=== PATIENT | male | born 1970 | race Caucasian/White ===

== ENCOUNTER → 2019-11-02 | Emergency (ER) | payer OTHER ==
[~2019-11-02] VITALS: Ht 175.3 cm; Wt 90.7 kg
[~2019-11-02] MED LIST: AMBIEN5 MG PO; MOTRIN IB200 MG PO; NORCO 5-325 TA1 EACH PO; PERCOCET 7.5-31 EACH PO; SILVADENE20 GM TOP; TYLENOL EXTRA500 MG PO
--- OUTSIDE RECORDS SUMMARY | ~2019-11-02 | XMS | Encounter Summary ---
Demographics + + + | Address | [address] | | | [place] [address] | + + + | Home Phone | | + + + | Preferred Language | Unknown | + + + | Marital Status | | + + + | Islam Affiliation | Unknown | + + + | Race | White | + + + | Ethnic Group | Not or | + + + Author + + + | Author | [facility] | + + + | Organization | [facility] | + + + | Address | Unknown | + + + | Phone | Unavailable | + + + Support + + + + + | Name | Relationship | Address | Phone | + + + + + | Bailey Watters | ECON | [address] | | | | | [place] | | | | | [address] | | + + + + + Care Team Providers + +------+ + | Care Polymer Tester Name | Role | Phone | + +------+ + PCP | Unavailable | + +------+ + Reason for Visit + + + | Reason | Comments | + + + | Blood draw | | + + + Encounter Details +--------+ + + + + | Date | Type | Department | Care Team | Description | +--------+ + + + + | 04/19/ | Clinical Recruiter | University | Mehreen Luis, | Special Screening | | 2006 | | Fertility | MD | Examination for | | | | Consultants at [facility] | | Other Specified | | | | [address] | | Viral Diseases; | | | | Mailcode: CH10F | | Screening | | | | [facility] | | Examination for | | | | and Healing, | | Venereal Disease | | | | Building | | | | | | Floor [place], [place] | | | | | | [address] | | | | | | [phone] | | | +--------+ + + + + Social History + +-------+ +--------+------+ | Tobacco Use | Types | Packs/Day | Years | Date | | | | | Used | | + +-------+ +--------+------+ | Never Assessed | | | | | + +-------+ +--------+------+ + + + | Sex Assigned at | Date Recorded | | | | + + + | Not on file | | + + + + + + + | Job Start Date | Occupation | Industry | + + + + | Not on file | Not on file | Not on file | + + + + + + + + | Travel History | Travel Start | Travel End | + + + + + + | No recent travel history available. | + + documented as of this encounter Plan of Treatment Not on filedocumented as of this encounter Results RPR SERUM (04/25/2007 7:57 AM PST) + + + + + + | Component | Value | Ref Range | Performed | Pathologist | | | | | At | Signature | + + + + + + | RPR SRM | Non-ReactiveComment: | | | | | QUAL | Test performed by | | | | | | [facility] | | | | | | [facility]. | | | | + + + + + + + + | Specimen | + + | Blood - Blood | + + + + + + + | Performing | Address | City/State/Zipcode | Phone Number | | Organization | | | | + + + + + | [facility] | [address] | [place] [address] | | | LABORATORY | | | | + + + + + HEPATITIS C AB (04/25/2007 7:56 AM PST) + + + + + + | Component | Value | Ref Range | Performed | Pathologist | | | | | At | Signature | + + + + + + | HEPATITIS C | NegativeComment: | Negative | | | | AB | Test performed by [facility] | | | | | | [facility] | | | | | | Laboratories. | | | | + + + + + + + + | Specimen | + + | Blood - Blood | + + + + + + + | Performing | Address | City/State/Zipcode | Phone Number | | Organization | | | | + + + + + | [facility] | [address] | [place] [address] | | | LABORATORY | | | | + + + + + HEPATITIS B SURFACE AG (04/25/2007 7:56 AM PST) + + + + + + | Component | Value | Ref Range | Performed | Pathologist | | | | | At | Signature | + + + + + + | HEPATITIS B | NegativeComment: | Negative | | | | SURFACE | Test performed by [facility] | | | | | AG, SERUM | [facility] | | | | | | Laboratories. | | | | + + + + + + + + | Specimen | + + | Blood - Blood | + + + + + + + | Performing | Address | City/State/Zipcode | Phone Number | | Organization | | | | + + + + + | [facility] | [address] | [place] [address] | | | LABORATORY | | | | + + + + + documented in this encounter Visit Diagnoses + + | Diagnosis | + + | Special screening examination for other specified viral diseases | + + | Screening examination for venereal disease | + + documented in this encounter"
--- OUTSIDE RECORDS SUMMARY | ~2019-11-02 | XMS | Encounter Summary ---
Demographics + + + | Address | [address] | | | [place] [address] | + + + | Home Phone | | + + + | Preferred Language | Unknown | + + + | Marital Status | | + + + | Latter Day Affiliation | Unknown | + + + | Race | White | + + + | Ethnic Group | Not or | + + + Author + + + | Author | [facility] | + + + | Organization | [facility] | + + + | Address | Unknown | + + + | Phone | Unavailable | + + + Support + + + + + | Name | Relationship | Address | Phone | + + + + + | Bailey Watters | ECON | [address] | | | | | [place] | | | | | [address] | | + + + + + Care Team Providers + +------+ + | Care Nut Dehydrator Operator Name | Role | Phone | + +------+ + PCP | Unavailable | + +------+ + Encounter Details +--------+ + + + + | Date | Type | Department | Care Team | Description | +--------+ + + + + | 03/20/ | Ancillary | Registration [id number] | | | | 2006 | Registratio | [address] | | | | | [address] | [address] Mailcode: [id number] | | | | | | [place], [place] | | | | | | [address] | | | | | | [phone] | | | +--------+ + + + [...] Not on filedocumented as of this encounter Visit Diagnoses Not on filedocumented in this encounter"
--- OUTSIDE RECORDS SUMMARY | ~2019-11-02 | XMS | Encounter Summary ---
Demographics + + + | Address | [address] | | | [place] [address] | + + + | Home Phone | | + + + | Preferred Language | Unknown | + + + | Marital Status | | + + + | Mormonism Affiliation | Unknown | + + + | Race | White | + + + | Ethnic Group | Not or | + + + Author + + + | Author | [facility] | + + + | Organization | [facility] | + + + | Address | Unknown | + + + | Phone | Unavailable | + + + Support + + + + + | Name | Relationship | Address | Phone | + + + + + | Bailey Watters | ECON | [address] | | | | | [place] | | | | | [address] | | + + + + + Care Team Providers + +------+ + | Care Emt Dispatcher Name | Role | Phone | + [...] + + + + | 04/19/ | Special Education Associate | University | Mehreen Luis, | Special Screening | | 2006 | | Fertility | MD | Examination for | | | | Consultants at [facility] | | Other Specified | | | | [address] | | Viral Diseases; | | | | Mailcode: CH10F | | Screening | | | | [facility] | | Examination for | | | | and Healing, | | Venereal Disease | | | | Building | | | | | | Floor [place], [place] | | | | | | [address] | | | | | | [phone] | | | +--------+ + + + [...] by | | | | | | [facility] | | | | | | [facility]. | | | | + + + + + + + + | Specimen | + + | Blood - Blood | + + + + + + + | Performing | Address | City/State/Zipcode | Phone Number | | Organization | | | | + + + + + | [facility] | [address] | [place] [address] | | | LABORATORY | | | [...] | | AB | Test performed by [facility] | | | | | | [facility] [...] + + + + + | [facility] | [address] | [place] [address] | | | LABORATORY | | | [...] | | | | AG, SERUM | [facility] | | | | | | Laboratories. | | | | + + + + + + + + | Specimen | + + | Blood - Blood | + + + + + + + | Performing | Address | City/State/Zipcode | Phone Number | | Organization | | | | + + + + + | [facility] | [address] | [place] [address] | | | LABORATORY | | | | + + + + + documented in this encounter Visit Diagnoses + + | Diagnosis | + + | Special screening examination for other specified viral diseases | + + | Screening examination for venereal disease | + + documented in this encounter"
--- OUTSIDE RECORDS SUMMARY | ~2019-11-02 | XMS | Clinical Summary ---
Demographics + + + | Address | [address] | | | [place] [address] | + + + | Home Phone | | + + + | Preferred Language | Unknown | + + + | Marital Status | | + + + | Mu-Ism Affiliation | Unknown | + + + | Race | White | + + + | Ethnic Group | Not or | + + + Author + + + | Author | NON REVENUE LOCATIONS | + + + | Organization | NON REVENUE LOCATIONS | + + + | Address | Unknown | + + + | Phone | Unavailable | + + + Support + + + + + | Name | Relationship | Address | Phone | + + + + + | Bailey Watters | ECON | [address] | | | | | [place] | | | | | [address] | | + + + + + Care Team Providers + +------+ + | Care Assistant Principal Name | Role | Phone | + +------+ + PCP | Unavailable | + +------+ + Source Comments DAO is fully live on both [facility] Ambulatory and [facility] InPatient.[facility] Allergies Not on File Medications Not on file Active Problems + + + | Problem | Noted Date | + + + | Male infertility | 04/25/2007 | + + + + + | Overview: ICD10 | + + Social History + +-------+ +--------+------+ [...] recent travel history available. | + + Last Filed Vital Signs Not on file Plan of Treatment + + + + + | Health Maintenance | Due Date | Last Done | Comments | + + + + + | Influenza (Flu) | | | | | vaccination (#1) | 9 | | | + + + + + | Pneumococcal | Aged Out | | No longer eligible | | vaccination | | | based on patient's | | | | | age to complete this | | | | | topic | + + + + + Results Not on filefrom Last 3 Months Insurance + +--------+ +--------+ + +------+ | Payer | Benefi | Subscriber | Effect | Phone | Address | Type | | | t Plan | ID | angela | | | | | | / | | Dates | | | | | | Group | | | | | | + +--------+ +--------+ + +------+ | [employer]UE | REGENC | [phone] | 09/01/19 | [phone] | [address] | PPO | | SHIELD | E BCBS | xxx | 18-Pre | 8 | [address] | | | | | | sent | | [place], | | | | | | | | [place] | | | | | | | | [address] | | + +--------+ +--------+ + +------+ + +--------+ +--------+ + + | Guarantor Name | Accoun | Relation to | Date | Phone | Billing Address | | | t Type | Patient | of | | | | | | | | | | + +--------+ +--------+ + + | Jovanni Watters | Person | Self | [birth year] | [address] | | | al/[place] | | 1970 | [phone] | [place] [address] | | | petey | | | 8 (Home) | | | | | | | [phone] | | | | | | | 8 (Work) | | + +--------+ +--------+ + +"
--- OUTSIDE RECORDS SUMMARY | ~2019-11-02 | XMS | Encounter Summary ---
Demographics + + + | Address | [address] | | | [place] [address] | + + + | Home Phone | | + + + | Preferred Language | Unknown | + + + | Marital Status | | + + + | Bahai Affiliation | Unknown | + + + | Race | White | + + + | Ethnic Group | Not or | + + + Author + + + | Author | [facility] [employer] [facility] | + + + | Organization | [facility] | + + + | Address | Unknown | + + + | Phone | Unavailable | + + + Support + + + + + | Name | Relationship | Address | Phone | + + + + + | Bailey Watters | ECON | [address] | | | | | [place] | | | | | [address] | | + + + + + Care Team Providers + +------+ + | Care Jewel Bearing Facer Name | Role | Phone | + +------+ + PCP | Unavailable | + +------+ + Encounter Details +--------+ + + + + | Date | Type | Department | Care Team | Description | +--------+ + + + + | 04/25/ | Collet Making Machine Operator | [place] | Cassandra Paz MD | Unspecified Male | | 2006 | | Fertility | [address] | Infertility (Primary | | | | Consultants at [facility] | [place], [place] | Dx) | | | | [address] | [address] | | | | | Mailcode: [facility] | [phone] | | | | | [facility] | | | | | | and Healing, | | | | | | Building | | | | | | Floor [place], [place] | | | | | | [address] | | | | | | [phone] | | | +--------+ + + + [...] as of this encounter Plan of Treatment + +------+--------+ + + | Name | Type | Priori | Associated Diagnoses | Order Schedule | | | | ty | | | + +------+--------+ + + | SPERM PENETRATION | Lab | Routin | Unspecified Male | Ordered: 04/25/2007 | | ASSAY - ANDROLOGY | | e | Infertility | | | LAB | | | | | + +------+--------+ + + documented as of this encounter Procedures + +--------+ + + + | Procedure Name | Priori | Date/Time | Associated Diagnosis | Comments | | | ty | | | | + +--------+ + + + | SEMEN ANALYSIS | Routin | 04/25/2007 | Unspecified Male | Results for this | | CLINICAL REPORT - | e | 9:05 AM | Infertility | procedure are in the | | ANDROLOGY LAB | | PST | | results section. | + +--------+ + + + documented in this encounter Results SEMEN ANALYSIS CLINICAL REPORT - ANDROLOGY LAB (04/25/2007 9:05 AM PST) + + + + + + | Component | Value | Ref Range | Performed | Pathologist | | | | | At | Signature | + + + + + + | TIME | 08:55 AM | | [facility] | | | ANALYZED | | | OGY LAB | | + + + + + + | TIME | 09:05am | | [facility] | | | COMPLETED | | | OGY LAB | | + + + + + + | VOLUME, | 1.4 (A) | 2 ml or more | [facility] | | | SEMEN | | | OGY LAB | | + + + + + + | COUNT | 102 | 20 million/ml | [facility] | | | | | or more | OGY LAB | | + + + + + + | MOTILITY % | 65 | 50 % | [facility] | | | | | | OGY LAB | | + + + + + + | TOTAL | 98 | 20 million or | [facility] | | | MOTILE | | more | OGY LAB | | + + + + + + | VITALITY | | 50 % | [facility] | | | | | | OGY LAB | | + + + + + + | FORWARD | 2.5 | 2 - 4 | [facility] | | | PROGRESSION | | | OGY LAB | | + + + + + + | VISCOSITY, | 2 | 1 - 2 | [facility] | | | SEMEN | | | OGY LAB | | + + + + + + | PH, SEMEN | 8.5 | 7.2 | [facility] | | | | | | OGY LAB | | + + + + + + | NORMAL | 59 | 30 % | [facility] | | | MORPHOLOGY | | | OGY LAB | | | % | | | | | + + + + + + | ROUND CELLS | 1-3 | hpf | [facility] | | | | | | OGY LAB | | + + + + + + | AGGLUTINATI | | | [facility] | | | ON | | | OGY LAB | | + + + + + + | ABSTINENCE | 2 1/2 | days | [facility] | | | DURATION | | | OGY LAB | | + + + + + + + + | Specimen | + + | Semen | + + + + + | Narrative | Performed At | + + + | PARTNER: Bailey Watters | | | | [facility] | | | LAB | + + + + + + + + | Performing | Address | City/State/Zipcode | Phone Number | | Organization | | | | + + + + + | [facility] | [address], | [place] [address] | | | | Tenth Floor | | | + + + + + documented in this encounter Visit Diagnoses + + | Diagnosis | + + | Male infertility, unspecified - Primary | + + documented in this encounter"
--- OUTSIDE RECORDS SUMMARY | ~2019-11-02 | XMS | Encounter Summary ---
Demographics + + + | Address | [address] | | | [place] [address] | + + + | Home Phone | | + + + | Preferred Language | Unknown | + + + | Marital Status | | + + + | Hinduism Affiliation | Unknown | + + + | Race | White | + + + | Ethnic Group | Not or | + + + Author + + + | Author | [facility] [employer] [facility] | + + + | Organization | [facility] | + + + | Address | Unknown | + + + | Phone | Unavailable | + + + Support + + + + + | Name | Relationship | Address | Phone | + + + + + | Bailey Watters | ECON | [address] | | | | | [place] | | | | | [address] | | + + + + + Care Team Providers + +------+ + | Care Quill Buncher And Sorter Name | Role | Phone | + +------+ + PCP | Unavailable | + +------+ + Encounter Details +--------+ + + + + | Date | Type | Department | Care Team | Description | +--------+ + + + + | 04/10/ | Clinical Services Professional | [place] | Cassandra Paz MD | Special Screening | | 2006 | | Fertility | [address] | Examination for | | | | Consultants at [facility] | [place], [place] | Other Specified | | | | [address] | [address] | Viral Diseases; | | | | Mailcode: [facility] | [phone] | Screening | | | | [facility] | | Examination for | | | | and Healing, | | Venereal Disease | | | | Building , 10th | | | | | | Floor [place], [place] | | | | | | [address] | | | | | | [phone] | | | +--------+ + + + [...] Not on filedocumented as of this encounter Procedures + +--------+ + + + | Procedure Name | Priori | Date/Time | Associated Diagnosis | Comments | | | ty | | | | + +--------+ + + + | RPR SERUM | Routin | 04/25/2007 | Screening | Results for this | | | e | 7:57 AM | Examination for | procedure are in the | | | | PST | Venereal Disease | results section. | + +--------+ + + + | HIV-1,2 AB/HIV-1 P24 | Routin | 04/25/2007 | Special Screening | Results for this | | AG SCRN | e | 7:56 AM | Examination for | procedure are in the | | | | PST | Other Specified | results section. | | | | | Viral Diseases | | + +--------+ + + + | HEPATITIS B SURFACE | Routin | 04/25/2007 | Special Screening | Results for this | | AG, SERUM | e | 7:56 AM | Examination for | procedure are in the | | | | PST | Other Specified | results section. | | | | | Viral Diseases | | + +--------+ + + + | HEPATITIS C VIRUS | Routin | 04/25/2007 | Special Screening | Results for this | | W/CONFIRMATION | e | 7:56 AM | Examination for | procedure are in the | | | | PST | Other Specified | results section. | | | | | Viral Diseases | | + +--------+ + + + documented in this encounter Results RPR SERUM (04/25/2007 7:57 AM PST) + + + + + + | Component | Value | Ref Range | Performed | Pathologist | | | | | At | Signature | + + + + + + | RPR SRM | Non-ReactiveComment: | | | | | QUAL | Test performed by | | | | | | [facility] | | | | | | [facility]. | | | | + + + + + + + + | Specimen | + + | Blood - Blood | + + + + + + + | Performing | Address | City/State/Zipcode | Phone Number | | Organization | | | | + + + + + | [facility] | [address] | [place] [address] | | | LABORATORY | | | | + + + + + HIV AB, SCREEN (04/25/2007 7:56 AM PST) + + + + + + | Component | Value | Ref Range | Performed | Pathologist | | | | | At | Signature | + + + + + + | HIV-1/HIV2 | Non-ReactiveComment: | Negative | [facility] | | | AB SCREEN | Reference Range: | | DEPARTMENT | | | | Non-reactive | | OF | | | | | | PATHOLOGY | | + + + + + + + + | Specimen | + + | Blood | + + + + + + + | Performing | Address | City/State/Zipcode | Phone Number | | Organization | | | | + + + + + | [facility] | [address] | [place] [address] | | | PATHOLOGY | [address] | | | + + + + + | [facility] | [address] | [place] [address] | | | PATHOLOGY | [address] | | | + + + + + HEPATITIS C AB (04/25/2007 7:56 AM PST) + + + + + + | Component | Value | Ref Range | Performed | Pathologist | | | | | At | Signature | + + + + + + | HEPATITIS C | NegativeComment: | Negative | | | | AB | Test performed by [facility] | | | | | | [facility] | | | | | | Laboratories. | | | | + + + + + + + + | Specimen | + + | Blood - Blood | + + + + + + + | Performing | Address | City/State/Zipcode | Phone Number | | Organization | | | | + + + + + | [facility] | [address] | [place] [address] | | | LABORATORY | | | [...] | | SURFACE | Test performed by [facility] | | | | | SIRIA, SERUM | [facility] | | | | | | [place]. | | | | + + + + + + + + | Specimen | + + | Blood - Blood | + + + + + + + | Performing | Address | City/State/Zipcode | Phone Number | | Organization | | | | + + + + + | [facility] | [address] | [place] [address] | | | LABORATORY | | | | + + + + + documented in this encounter Visit Diagnoses + + | Diagnosis | + + | Special screening examination for other specified viral diseases | + + | Screening examination for venereal disease | + + documented in this encounter"
--- OUTSIDE RECORDS SUMMARY | ~2019-11-02 | XMS | Clinical Summary ---
Demographics + + + | Address | [address] | | | [place] [address] | + + + | Home Phone | | + + + | Preferred Language | Unknown | + + + | Marital Status | | + + + | Shinto Affiliation | Unknown | + + + [...] [place] | | | | | [address] | | + + + + + Care Team Providers + +------+ + | Care Crew Foreman Name | Role | Phone | + +------+ + PCP | Unavailable | + +------+ + Source Comments DAO is fully live on both [facility] Ambulatory and [facility] InPatient.[facility] Allergies Not on File Medications [...] | xxx | 18-Pre | 8 | [address] | | | | | | sent | | [place], | | | | | | | | [place] | | | | | | | | [address] | | + +--------+ +--------+ + +------+ [...] | | al/Silverio | | 1970 | [phone] | [place] [address] | | | petey | | | 8 (Home) | | | | | | | [phone] | | | | | | | 8 (Work) | | + +--------+ +--------+ + +"
--- OUTSIDE RECORDS SUMMARY | ~2019-11-02 | XMS | Encounter Summary ---
Demographics + + + | Address | [address] | | | [place] [address] | + + + | Home Phone | | + + + | Preferred Language | Unknown | + + + | Marital Status | | + + + | Mandaeism Affiliation | Unknown | + + + | Race | White | + + + | Ethnic Group | Not or | + + + Author + + + | Author | [facility] | + + + | Organization | [facility] | + + + | Address | Unknown | + + + | Phone | Unavailable | + + + Support + + + + + | Name | Relationship | Address | Phone | + + + + + | Bailey Wattres | ECON | [address] | | | | | [place] | | | | | [address] | | + + + + + Care Team Providers + +------+ + | Care Grid Operator Name | Role | Phone | [...] [id number] | | | | | | [place], [place] | | | | | | [address] | | | | | | [phone] | | | +--------+ + + + [...]
--- OUTSIDE RECORDS SUMMARY | ~2019-11-02 | XMS | Encounter Summary ---
Demographics + + + | Address | [address] | | | [place] [address] | + + + | Home Phone | | + + + | Preferred Language | Unknown | + + + | Marital Status | | + + + | Adventism Affiliation | Unknown | + + + | Race | White | + + + | Ethnic Group | Not or | + + + Author + + + | Author | [facility] | + + + | Organization | [facility] | + + + | Address | Unknown | + + + | Phone | Unavailable | + + + Support + + + + + | Name | Relationship | Address | Phone | + + + + + | Bailey Watters | ECON | [address] | | | | | [place] | | | | | [address] | | + + + + + Care Team Providers + +------+ + | Care Surface Grinder Tender Name | Role | Phone | + +------+ + PCP | Unavailable | + +------+ + Encounter Details +--------+ + + + + | Date | Type | Department | Care Team | Description | +--------+ + + + + | 04/25/ | Metal Furniture Repairer | [place] | Cassandra Paz MD | Unspecified Male | | 2006 | | Fertility | [address] | Infertility (Primary | | | | Consultants at [facility] | [place], [place] | Dx) | | | | [address] | [address] | | | | | Mailcode: [facility] | [phone] | | | | | [facility] | | | | | | and Healing, | | | | | | Building | | | | | | Floor [place], [place] | | | | | | [address] | | | | | | [phone] | | | +--------+ + + + [...] [facility] | [address], | [place] [address] | | | | Tenth Floor | | | + + + + + documented in this encounter Visit Diagnoses + + | Diagnosis | + + | Male infertility, unspecified - Primary | + + documented in this encounter"
--- OUTSIDE RECORDS SUMMARY | ~2019-11-02 | XMS | Encounter Summary ---
Demographics + + + | Address | [address] | | | [place] [address] | + + + | Home Phone | | + + + | Preferred Language | Unknown | + + + | Marital Status | | + + + | Sikh Affiliation | Unknown | + + + | Race | White | + + + | Ethnic Group | Not or | + + + Author + + + | Author | [facility] | + + + | Organization | [facility] | + + + | Address | Unknown | + + + | Phone | Unavailable | + + + Support + + + + + | Name | Relationship | Address | Phone | + + + + + | Bailey Watters | ECON | [address] | | | | | [place] | | | | | [address] | | + + + + + Care Team Providers + +------+ + | Care Phlebotomist Lab Assistant Name | Role | Phone | + +------+ + PCP | Unavailable | + +------+ + Encounter Details +--------+ + + + + | Date | Type | Department | Care Team | Description | +--------+ + + + + | 04/10/ | Immigration Judge | [place] | Cassandra Paz MD | Special Screening | | 2006 | | Fertility | [address] | Examination for | | | | Consultants at [facility] | [place], [place] | Other Specified | | | | [address] | [address] | Viral Diseases; | | | | Mailcode: [facility] | [phone] | Screening | | | | [facility] | | Examination for | | | | and Healing, | | Venereal Disease | | | | Building , [address] | | | | | | Floor [place], [place] | | | | | | [address] | | | | | | [phone] | | | +--------+ + + + [...] | | | | | | [facility] | | | | | | Agari. | | | | + + + + + + + + | Specimen | + + | Blood - Blood | + + + + + + + | Performing | Address | City/State/Zipcode | Phone Number | | Organization | | | | + + + + + | [facility] | [address] | [place] [address] | | | LABORATORY | | | [...] DEPARTMENT OF | [address] | [place] [address] | | | PATHOLOGY | [address] | | | + + + + + | [facility][1] | [address] | [place] [address] | | | PATHOLOGY | [address] [...] [facility] | | | | | | [facility] | | | | | | Laboratories. | | | | + + + + + + + + | Specimen | + + | Blood - Blood | + + + + + + + | Performing | Address | City/State/Zipcode | Phone Number | | Organization | | | | + + + + + | [facility] | [address] | [place] [address] | | | LABORATORY | | | [...] | SIRIA, SERUM | [facility] | | | | | | Nicko. | | | | + + + + + + + + | Specimen | + + | Blood - Blood | + + + + + + + | Performing | Address | City/State/Zipcode | Phone Number | | Organization | | | | + + + + + | [facility] | [address] | [place] [address] | | | LABORATORY | | | | + + + + + documented in this encounter Visit Diagnoses + + | Diagnosis | + + | Special screening examination for other specified viral diseases | + + | Screening examination for venereal disease | + + documented in this encounter"
--- OUTSIDE RECORDS SUMMARY | 2019-11-02 17:04 | XMS ---
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 CARE PROVIDERS There are no care providers on record at this time. Abhilash has no Care Guidelines for this patient. Uriel VISIT COUNT (12 MO.) 1 ELZA Newman TOTAL 1 NOTE: Visits indicate total known visits. ED/C VISIT TRACKING (12 MO.) 11/02/2019 17:01 ELZA Soni [place] TYPE: Emergency COMPLAINT: - HAND BURN INPATIENT VISIT TRACKING (12 MO.) No inpatient visits to display in this time frame [email or web address]
== END ==
LOC: ED 17:00
DX: T23.242A Burn of second degree of multiple left fingers (nail), including thumb, initial encounter (principal); X08.8XXA Exposure to other specified smoke, fire and flames, initial encounter
CPT/HCPCS: 16020; 99283-25; J1170

== ENCOUNTER 2022-04-06 05:58 | Day surgery (SDC) | payer OTHER ==
[~2022-04-06] VITALS: Ht 175.3 cm; Wt 90.9 kg
[~2022-04-06 05:58] MED LIST changes: +KIDS MELATONIN1 MG; +MELOXICAM15 MG PO; +OMEPRAZOLE20 MG PO
--- NOTE | 2022-04-06 09:12 | NUR ---
04/06/22 0912 Erica Asher 0925 PATIENT ARRIVES TO PACU MOANING WITH EYES CLOSED. DOES NOT FOLLOW COMMANDS. RESP EVEN AND UNLABORED, MASK AT 6 LITERS. PATIENT C/O ABD PAIN.
[2022-04-06] MEDS ORDERED: TYLENOL EXTRA500 MG PO (09:30)
[2022-04-06] MEDS ORDERED: MOTRIN IB200 MG PO (09:30)
[2022-04-06] MEDS ORDERED: PERCOCET 7.5-31 EACH PO (09:31)
--- NOTE | 2022-04-06 10:21 | NUR ---
PT ALERT, OREINTED AND SUPPORTED BY HIS JONATHAN. PT IS SOMEWHAT ANXIOUS. GAVE ENCOURAGEMENT, JONATHAN WILL RETURN AFTER GETTING KIDS OFF TO SCHOOL. PT REQUESTED PRAYER, THANKED ME FOR VISIT. WILL FOLLOW NEEDED
--- NOTE | 2022-04-06 11:39 | NUR ---
LE 1120: PT IS BACK TO DS FROM PACU. HE IS HAVING TROUBLE GETTING HIS PAIN UNDER CONTROL. HE ATE PUDDING IN PACU. HE IS GIVEN 7UP AND WATER. HE REQUESTS PAIN MEDICATION. CALL LIGHTIS WITHIN REACH. NO ADDITIONAL NEEDS OR CONCERNS. DC CRITERIA IS REVIEWED WITH THE PT, HE IS EDUCATED THAT HE WILL NOT BE SENT HOME UNTIL THIS RN BELIEVES IT IS SAFE TO DO SO. PT'S , JONATHAN, IS CALLED AND UPDATED ON THE PT'S STATUS.
--- NOTE | 2022-04-06 12:34 | NUR ---
PT REPORTS THAT HIS PAIN HAS GONE DOWN FROM AN 8.5 TO AN 8/10. IS AT THE BEDSIDE. CALL LIGHT IS WITHIN REACH. NO ADDITIONAL NEEDS OR CONCERNS.
--- NOTE | 2022-04-06 13:12 | NUR ---
LE 1230: PT WOULD LIKE TO GET UP AND USE THE RESTROOM. HE IS ASSISTED TO THE SIDE OF TH BED, WHERE HE REPORTS FEELING DIZZY/LIGHTHEADED. HE SITS AT THE EDGE OF THE BED FOR A FEW MINUTES, BEFORE STANDING, WHERE HE REPORTS STILL FEELING DIZZY/LIGHTHEADED. WITH ASSISTANCE HE IS WALKED ACROSS THE STACY TO THE BATHROOM WHERE HE IS ABLE TO VOID 200MLS OF DARK YELLOW URINE. WITH STANDBY ASSIST HE IS ABLE TO WALK BACK ACROSS THE STACY TO HIS ROOM, WHERE HE REPORTS THAT HE "JUST WANTS TO GO HOME." HE IS EDUCATED ON HOW TO BEST DRESS HIMSELF AND TO OPEN HIS CURTAIN WHEN HE IS READY. LE 1300: PT IS GIVEN VERBAL AND WRITTEN DC INSTRUCTIONS WITH IS PRESENT. QUESTIONS ARE ASKED AND ANSWERED. HE IS TAKEN TO PERSONAL VEHICLE VIA WC, HE IS ABLE TO TRANSFER HIMSELF SAFELY WITHOUT ISSUES.
--- NOTE | 2022-04-07 17:36 | OR ---
[facility] [address] [place], [place] [address] Signed DATE OF OPERATION: 04/06/2022 SURGEON: Yasmine Marcum MD PREOPERATIVE DIAGNOSIS: Acalculous cholecystitis. POSTOPERATIVE DIAGNOSES: 1. Acalculous cholecystitis. 2. Exceedingly small cystic duct. PROCEDURES: Laparoscopic cholecystectomy with attempted unsuccessful cholangiogram. ANESTHESIA: General endotracheal anesthesia local 20 mL of 0.25% Marcaine with epinephrine. 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 To me from the past. He has been having a number of months of increasing right upper abdominal pain. Gallbladder ultrasound showed no evidence of stones and a CCK-HIDA test was performed, which showed a normal ejection fraction, but reproduction of his symptoms of right upper abdominal pain. He does have family history of biliary disease in his mother, who underwent cholecystectomy. The patient has undergone colonoscopy, showing no sign of pathology of the hepatic flexure or elsewhere. He has had accelerating symptoms recently and although planning for cholecystectomy in April, symptoms have worsened enough recently that he has decided to undergo cholecystectomy sooner. We discussed the risks of bleeding, infection, bile duct injury, need for open procedure, and importantly failure to cure his symptoms. Understand this, he wished to proceed. FINDINGS: The gallbladder was chronically inflamed. The liver was normal. There were no other findings of note. The appendix was not visualized as it had been removed in the past. The cystic duct and the cystic artery were impressively small. Most notably the cystic duct smaller actually than the cystic artery. On that basis, cholangiogram was not able to be performed. The gallbladder once opened showed chronic inflammatory change of the Electronically Signed By: YASMINE MARCUM MD 04/07/22 1736 PATIENT NAME: MEENA LOWRY OPERATIVE REPORT DATE OF : 72 REPORT #: [id number] PHYSICIAN: YASMINE MARCUM MD PCP: YU PITTS PAC REPORT IS CONFIDENTIAL AND NOT TO BE RELEASED WITHOUT AUTHORIZATION [facility] [address] [place], [place] [address] Signed mucosa. There was no sign of neoplasm and no stones. DESCRIPTION OF PROCEDURE: The patient was brought to the operating room, given a general endotracheal anesthetic. Preoperative antibiotic Ancef was given. Sequential compression device stockings used and heparin subcutaneously administered. The abdomen was prepared with chlorhexidine solution and draped sterilely. An infraumbilical incision was made and using an open Christianne cannula technique, pneumoperitoneum was achieved to a level of 10 mmHg. A lower pressure peritoneum was maintained as the patient had a relative long-standing bradycardia. He was given atropine by the spring assembler supervisor to maintain heart rate, which was not a problem and he was never hypotensive. Intraabdominal inspection showed no evidence of ascites, carcinomatosis, or other abnormality. The apex of the gallbladder was visualized and chronically inflamed with a dull burns appearance. Three additional trocars were placed in usual configuration in the subxiphoid, right midclavicular, and right anterior axillary line. The gallbladder was elevated cephalad and examined thoroughly showing chronic inflammatory change. The liver was normal. The infundibulum of the gallbladder was retracted laterally and using blunt and electrocautery dissection, the triangle of Calot was dissected free. Two structures that were juxtaposed were identified, neither of which could be told for certain, which was artery and which was duct. The smaller structure was considered more likely the artery was doubly clipped and divided. The larger considered likely the duct was secured with a clip close to the gallbladder. Transverse choledochotomy made showing arterial bleeding consistent with the artery after all. On that basis, it was doubly clipped and more fully divided. At this point, further attempts at reestablishing the divided cystic duct which was extremely small in diameter was deemed metal some and proceeding without cholangiogram was deemed most appropriate. The gallbladder was then dissected free in a retrograde fashion in the avascular plane ultimately excising the gallbladder and placed in an endobag and extracted through the infraumbilical port site. The gallbladder was opened on the back table and found to have chronic inflammatory change. No sign of stones or neoplasm. Irrigation was undertaken in subhepatic space. Hemostasis was assured with electrocautery. Some Kvng was applied to the liver bed to make certain that there will be no postoperative bleeding of any sort. Excess irrigation fluid was suctioned free. The trocars were sequentially removed. The right midclavicular trocar site had some oozing and therefore additional electrocautery was applied, and ultimately the Jerad-Ta 0-Vicryl suture used to more fully secure hemostasis. By conclusion, there was excellent hemostasis on all trocar sites. The plans were then made for closure. The inferior umbilical incision was re-approximated with interrupted 0-Vicryl suture. All wounds were copiously irrigated Electronically Signed By: YASMINE MARCUM MD 04/07/22 1736 PATIENT NAME: MEENA LOWRY OPERATIVE REPORT DATE OF : 72 REPORT #: [id number] PHYSICIAN: YASMINE MARCUM MD PCP: YU PITTS PAC REPORT IS CONFIDENTIAL AND NOT TO BE RELEASED WITHOUT AUTHORIZATION [facility] [address] [place] [address] Signed and 20 mL of 0.25% Marcaine with epinephrine was injected locally. The skin was then closed with interrupted 3-0 Vicryl. Steri-Strips were applied. The patient was extubated and taken to the recovery room in good condition. Blood loss was minimal. Complications were none. MD DELFIN Desai/TRACY /[id number] cc: Yu Pitts Copies: ~ Electronically Signed By: YASMINE MARCUM MD 04/07/22 1736 PATIENT NAME: MEENA LOWRY OPERATIVE REPORT DATE OF : 72 REPORT #: [id number] PHYSICIAN: YASMINE MARCUM MD PCP: YU PITTS PAC REPORT IS CONFIDENTIAL AND NOT TO BE RELEASED WITHOUT AUTHORIZATION
== END 2022-04-06 13:05 | disposition home or self-care (01) ==
LOC: DS 05:58
PROVIDERS: ATTEND Surgery
PROC: 0FT44ZZ Resection of Gallbladder, Percutaneous Endoscopic Approach (ICD-10-PCS; principal; 2022-04-06 07:30)
DX: K81.0 Acute cholecystitis (principal); K21.00 Gastro-esophageal reflux disease with esophagitis, without bleeding
CPT/HCPCS: J0131; J0330; J0690; J1100; J1170; J1644; J2001; J2250; J2405; J2704; J3010; J7121

== ENCOUNTER 2022-04-30 09:04 | Day surgery (SDC) | payer OTHER ==
[~2022-04-30] VITALS: Ht 175.3 cm; Wt 90.9 kg
--- NOTE | 2022-04-30 12:20 | NUR ---
04/30/22 1220 Suzan Roman 1213- PT ARRIVES TO PACU ALERT AND ORIENTED. PT REPORTS NO DIZZINESS, NAUSEA, OR PAIN. RESP EVEN AND UNLABORED. OXYGEN SAT HIGH 90'S TO 100% ON 3L VIA NC. 1214- OXYGEN TITRATED OFF. 1218- PT SITTING UP IN BED. PT REPORTS NO DIZZINESS, NAUSEA, OR PAIN.
--- NOTE | 2022-05-01 13:07 | OR ---
[facility] [address] [place], [place] [address] Signed DATE OF OPERATION: 04/30/2022 SURGEON: Yasmine Marcum MD PREOPERATIVE DIAGNOSES: 1. Colon screening. 2. Recent history of laparoscopic cholecystectomy for acalculous cholecystitis; some persistent right upper abdominal pain. POSTOPERATIVE DIAGNOSIS: Pandiverticulosis. PROCEDURE: Total colonoscopy to cecum with intubation of the ileum and biopsies of ileum and rectum. ANESTHESIA: Intravenous sedation; fentanyl 150 mcg and Versed 5 mg. INDICATION: This 52-year-old white man is a patient of Yu Pitts and was referred for screening colonoscopy in January. He was noted at that time to have bouts of right upper abdominal pain and gallbladder ultrasound had been performed and was normal. A CCK-HIDA test subsequently performed had no abnormality of ejection fraction, but did reproduce his symptoms of right upper abdominal pain. He had an extensive family history of biliary disease for which other family members have undergone cholecystectomy. He did undergo cholecystectomy a few weeks ago and still has some occasional right upper abdominal pain. He is here for the colonoscopy for screening. The risk of bleeding, infection, and perforation related to colonoscopy were reviewed with him. He understood and wished to proceed. FINDINGS: The prep was excellent. Complete colonoscopy was undertaken to the cecum and intubation of the ileum was accomplished as well. The ileum appeared normal. He had diverticulosis extending from the right colon throughout the colon including the rectosigmoid. There was no evidence of polyps, colitis, or cancer. Biopsies were obtained of the ileum and rectum to rule out occult inflammation. PROCEDURE: The patient was brought to the endoscopy suite and placed in the lateral decubitus position, given intravenous sedation to the point of slurred speech and nystagmus. Electronically Signed By: YASMINE MARCUM MD 05/01/22 1307 PATIENT NAME: MEENA LOWRY OPERATIVE REPORT DATE OF : 72 REPORT #: [id number] PHYSICIAN: YASMINE MARCUM MD PCP: YU PITTS PAC REPORT IS CONFIDENTIAL AND NOT TO BE RELEASED WITHOUT AUTHORIZATION [facility] [address] [place], [place] [address] Signed Digital rectal examination was normal. An Olympus video colonoscope was passed in the rectum and manipulated throughout the colon ultimately intubating the cecum itself. The ileocecal valve and appendiceal orifice were normal. With various manipulations, the ileocecal valve was intubated allowing for visualization of mucosa which appeared normal. Biopsies were obtained nevertheless. The scope was withdrawn and examination undertaken. There were diverticula extending to the cecum and throughout the colon but most dominantly in the left and sigmoid areas. Rectal biopsy was performed to rule out occult inflammation as well. The scope was removed after retroflexed view showed no sign of abnormality. He was taken to the recovery room in good condition. CONCLUDING DIAGNOSIS: Pandiverticulosis. The colon does not clinically appear to be inflamed; it is uncertain if the persistent right upper abdominal pain he has may be related to this, however. PLAN: He will return to see us in the near future and we will review his ongoing symptoms and review pathology report from colonoscopy. MD DELFIN Desai/TRACY /[id number] cc: ANGELICA Liao Copies: ~ Electronically Signed By: YASMINE MARCUM MD 05/01/22 1307 PATIENT NAME: MEENA LOWRY OPERATIVE REPORT DATE OF : 72 REPORT #: [id number] PHYSICIAN: YASMINE MARCUM MD PCP: YU PITTS PAC REPORT IS CONFIDENTIAL AND NOT TO BE RELEASED WITHOUT AUTHORIZATION
--- NOTE | 2022-05-04 12:12 | PATH ---
[facility] [address] [facility] [place], [place] [address] Signed SPECIMEN(S): A TERMINAL ILEUM BIOPSY SPECIMEN(S): B RECTAL BIOPSY SPECIMEN SOURCE: A. TERMINAL ILEUM BIOPSY B. RECTAL BIOPSY CLINICAL HISTORY: Initial screening colonoscopy. FINAL PATHOLOGIC DIAGNOSIS: A. Terminal ileum biopsy: - Benign small bowel-type mucosa, negative for specific diagnostic abnormality. B. Rectal biopsy: - Hyperplastic polyp (two fragments). JVR:[facility]:C2NR MICROSCOPIC EXAMINATION: Histologic sections of all submitted blocks are examined by light microscopy. These findings, together with the gross examination, support the pathologic diagnosis. GROSS DESCRIPTION: Two specimens are received in two containers labeled with "CT." A. The specimen, labeled "CT, 1," and designated on the requisition "terminal ileum biopsy," is received in formalin and consists of one fragment of pink-gleason tissue (0.4 cm in greatest dimension). The specimen is submitted entirely in cassette (A1). B. The specimen, labeled "CT, 2," and designated on the requisition "rectum biopsy," is received in formalin and consists of two fragments of pink-gleason tissue (0.2-0.3 cm in greatest dimension). The specimen is submitted entirely in cassette (B1). AC (under the direct supervision of a pathologist) The Gross Description was prepared using a voice recognition system. The report was reviewed for accuracy; however, sound-alike word errors, addition and/or deletions may occur. If there is any question about this report, please contact Client Services. PERFORMING LABORATORY: The technical component was performed by Deezer, Yoseph Vo, PATIENT NAME: MEENA LOWRY PATHOLOGY DATE OF : 72 REPORT #: [id number] PHYSICIAN: YESSICA WHITTEN PCP: YU PITTS PAC REPORT IS CONFIDENTIAL AND NOT TO BE RELEASED WITHOUT AUTHORIZATION [facility] [address] [facility] [place] [place] [address] [place] [address] (CLIA# [id number]). Professional interpretation was performed by [facility], [address] [place] [id number] (CLIA#: [id number]). Diagnostician: Danny Clark MD Pathologist Electronically Signed 05/04/2022 Copies: ~ PATIENT NAME: MEENA LOWRY PATHOLOGY DATE OF : 72 REPORT #: [id number] PHYSICIAN: YESSICA WHITTEN PCP: YU PITTS PAC REPORT IS CONFIDENTIAL AND NOT TO BE RELEASED WITHOUT AUTHORIZATION
== END 2022-04-30 12:48 | disposition home or self-care (01) ==
LOC: OPS 09:04 → DS 09:07 → OPS 10:15 → DS 11:00 → OPS 12:48
PROVIDERS: ATTEND Surgery
PROC: 0DBP8ZX Excision of Rectum, Via Natural or Artificial Opening Endoscopic, Diagnostic (ICD-10-PCS; principal; 2022-04-30 10:15)
DX: K57.30 Diverticulosis of large intestine without perforation or abscess without bleeding (principal); M54.89 Other dorsalgia; K21.9 Gastro-esophageal reflux disease without esophagitis; K62.1 Rectal polyp
CPT/HCPCS: 99153; G0500; J2250; J3010; J7121